=== PATIENT | female | born 2000 | race Hispanic/Latino ===

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

== ENCOUNTER 2021-02-24 00:41 | Emergency (ER) | payer SELFPAY | END 2021-02-24 00:46 | disposition left against medical advice (07) | LOC: ED 00:41 ==